=== PATIENT | female | born 1955 | race Native Hawaiian/Other Pacific Islander ===

== ENCOUNTER 2019-01-13 19:01 | Outpatient (CLI) | payer MEDICARE | END 2019-01-13 19:02 | disposition home or self-care (01) | LOC: C.SLEEP 19:01 | DX: G47.33 Obstructive sleep apnea (adult) (pediatric) (principal) ==

== ENCOUNTER 2019-02-17 19:02 | Outpatient (CLI) | payer MEDICARE | END 2019-02-17 19:03 | disposition home or self-care (01) | LOC: C.SLEEP 19:03 | DX: G47.33 Obstructive sleep apnea (adult) (pediatric) (principal) ==